=== PATIENT | male | born 1970 | race Hispanic/Latino ===

== ENCOUNTER 2022-06-13 17:31 | Inpatient (IN) | payer SELFPAY ==
[~2022-06-13] VITALS: Ht 167.6 cm; Wt 60.4 kg
[2022-06-13] MEDS ORDERED: LEVOFLOXACIN 500MG/D5W 100ML 100 ML IV STA (17:39)
[2022-06-13 18:06] LABS: BASOPHILS % 0.2 % (0.0-1.0); EOSINOPHILS # (AUTO) 0.1 (0.0-0.4); EOSINOPHILS % 0.6 % (0.0-6.0); HEMATOCRIT 35.3 % (38.2-49.6); HEMOGLOBIN 12.1 g/dL (14.0-18.0); LYMPHOCYTES # (AUTO) 1.5 (1.0-3.2); LYMPHOCYTES % 10.2 % (18.0-39.1); MEAN CORPUSCULAR HEMOGLOBIN 29.8 pg (28-32); MEAN CORPUSCULAR HGB CONC 34.3 g/dL (31-35); MEAN CORPUSCULAR VOLUME 86.9 fL (81-99); MONOCYTES # (AUTO) 0.8 (0.2-0.8); MONOCYTES % 5.4 % (4.4-11.3); NEUTROPHILS # (AUTO) 11.9 (2.1-6.9); NEUTROPHILS % 83.3 % (38.7-80.0); PLATELET COUNT 268 x10e3/uL (140-360); RED BLOOD COUNT 4.06 x10e6/uL (4.3-5.7); RED CELL DISTRIBUTION WIDTH 12.1 % (11.7-14.4)
[2022-06-13 18:08] LABS: ALBUMIN 3.4 g/dL (3.5-5.0); ALBUMIN/GLOBULIN RATIO 0.8 (0.8-2.0); ANION GAP 16.4 mmol/L (8-16); CALCIUM 8.8 mg/dL (8.4-10.2); CREATININE, SERUM 0.76 mg/dL (0.72-1.25); POTASSIUM 3.4 mmol/L (3.5-5.1)
[2022-06-13] MEDS ORDERED: ONDANSETRON HCL INJ 2MG/ML 2ML 2 MG/ML VIAL IV PRN (19:15)
[2022-06-13] MEDS ORDERED: Morphine 4mg INJECTION 4 MG/ML INJ IV PRN (19:15)
[2022-06-13] MEDS ORDERED: POTASSIUM CHLORIDE 20 MEQ TAB CR PO STA (19:50)
[2022-06-13] MEDS ORDERED: ENOXAPARIN SOD INJ 40 MG/0.4 ML SYR SC STA (19:50)
[2022-06-13] MEDS ORDERED: MEROPENEM 1 GM in SODIUM CHLORIDE 0.9% 100 ML IV ONE (20:00)
[2022-06-13] MEDS ORDERED: DEXTROSE 50% SYRINGE 50 ML IV PRN (20:00)
[2022-06-13] MEDS ORDERED: Vancomycin IV 1 GM in SODIUM CHLORIDE 0.9% 250ML 250 ML IV ONE (20:00)
[2022-06-13] MEDS: INSULIN LISPRO 100 UNIT/1 ML 3ML VIAL SQ SCH (20:45)
[2022-06-13] MEDS: ACETAMINOPHEN 325 MG TAB PO PRN (20:45)
[2022-06-13] MEDS ORDERED: INSULIN REGULAR, HUMAN 100 UNIT/1 ML SQ SCH ×2 (21:00)
[2022-06-13] MEDS ORDERED: HYDRALAZINE HCL 20 MG/ML VIAL IV PRN (21:45)
[2022-06-13] MEDS ORDERED: METFORMIN HCL850 MG PO (21:46)
[2022-06-13 21:54] VITALS: BP 147/97
[2022-06-13 22:00] VITALS: BP 142/82
[2022-06-14] VITALS (9 sets, daily range): BP systolic 128–145; BP diastolic 71–86
[2022-06-14] MEDS: ACETAMINOPHEN 325 MG TAB PO PRN (04:34)
[2022-06-14 05:42] LABS: BASOPHILS % 0.3 % (0.0-1.0); EOSINOPHILS # (AUTO) 0.1 (0.0-0.4); EOSINOPHILS % 0.8 % (0.0-6.0); HEMATOCRIT 34.5 % (38.2-49.6); HEMOGLOBIN 11.6 g/dL (14.0-18.0); LYMPHOCYTES % 14.2 % (18.0-39.1); MEAN CORPUSCULAR HEMOGLOBIN 29.4 pg (28-32); MEAN CORPUSCULAR HGB CONC 33.6 g/dL (31-35); MEAN CORPUSCULAR VOLUME 87.3 fL (81-99); MONOCYTES # (AUTO) 0.9 (0.2-0.8); MONOCYTES % 6.3 % (4.4-11.3); NEUTROPHILS # (AUTO) 10.9 (2.1-6.9); PLATELET COUNT 268 x10e3/uL (140-360); RED BLOOD COUNT 3.95 x10e6/uL (4.3-5.7); RED CELL DISTRIBUTION WIDTH 11.9 % (11.7-14.4)
[2022-06-14 06:39] LABS: ALBUMIN 3.1 g/dL (3.5-5.0); ALBUMIN/GLOBULIN RATIO 0.8 (0.8-2.0); ANION GAP 12.8 mmol/L (8-16); CALCIUM 8.8 mg/dL (8.4-10.2); CREATININE, SERUM 0.79 mg/dL (0.72-1.25); POTASSIUM 3.8 mmol/L (3.5-5.1)
[2022-06-14 06:54] LABS: INR 0.99
[2022-06-14 06:55] LABS: PARTIAL THROMBOPLASTIN TIME 34.9 seconds (23.8-35.5)
[2022-06-14] MEDS: INSULIN LISPRO 100 UNIT/1 ML 3ML VIAL SQ SCH ×4 (09:20→21:27)
[2022-06-14] MEDS: Morphine 2mg Syringe 2 MG/ML SYR IV PRN ×3 (09:39→21:22)
[2022-06-14] MEDS: DOXYCYCLINE HYCLATE TABLET 100 MG TAB PO SCH ×2 (11:42→21:22)
[2022-06-14] MEDS: MUPIROCIN 2% OINT 22 GM TUBE TOP SCH (21:00)
[2022-06-15 04:00] VITALS: BP 113/74
[2022-06-15 08:33] VITALS: BP 109/73
[2022-06-15 08:40] VITALS: BP 109/73
[2022-06-15] MEDS: MUPIROCIN 2% OINT 22 GM TUBE TOP SCH (08:41)
[2022-06-15] MEDS: DOXYCYCLINE HYCLATE TABLET 100 MG TAB PO SCH (08:41)
[2022-06-15] MEDS: ACETAMINOPHEN 325 MG TAB PO PRN (08:42)
[2022-06-15] MEDS ORDERED: ONDANSETRON HCL 4 MG ORAL DISINTEGRATING TAB PO PRN (08:45)
[2022-06-15] MEDS: INSULIN LISPRO 100 UNIT/1 ML 3ML VIAL SQ SCH (08:49)
[2022-06-15 09:36] LABS: BASOPHILS % 0.2 % (0.0-1.0); EOSINOPHILS # (AUTO) 0.1 (0.0-0.4); EOSINOPHILS % 1.1 % (0.0-6.0); HEMOGLOBIN 12.1 g/dL (14.0-18.0); LYMPHOCYTES # (AUTO) 1.7 (1.0-3.2); LYMPHOCYTES % 13.8 % (18.0-39.1); MEAN CORPUSCULAR HEMOGLOBIN 29.5 pg (28-32); MEAN CORPUSCULAR HGB CONC 33.6 g/dL (31-35); MEAN CORPUSCULAR VOLUME 87.8 fL (81-99); MONOCYTES # (AUTO) 0.6 (0.2-0.8); MONOCYTES % 4.8 % (4.4-11.3); NEUTROPHILS % 79.8 % (38.7-80.0); PLATELET COUNT 288 x10e3/uL (140-360); RED CELL DISTRIBUTION WIDTH 11.9 % (11.7-14.4)
[2022-06-15] MEDS ORDERED: CIPRO500 MG PO (11:29)
[2022-06-15] MEDS ORDERED: DOXYCYCLINE HY100 MG PO (11:29)
[2022-06-15] MEDS ORDERED: GLIPIZIDE5 MG PO (11:29)
[2022-06-15 12:01] VITALS: BP 127/77
[2022-06-15] MEDS ORDERED: METFORMIN HCL 850 MG TAB PO SCH (17:00)
[2022-06-15] MEDS ORDERED: IBUPROFEN600 MG PO (17:15)
== END 2022-06-15 13:21 | disposition home or self-care (01) | DRG 623 ==
LOC: ER 17:35 → ERHOLD 19:07 → MED/SURG3 21:30
PROVIDERS: ADMIT Internal Medicine; ATTEND Internal Medicine
PROC: 0JBR0ZZ Excision of Left Foot Subcutaneous Tissue and Fascia, Open Approach (ICD-10-PCS; principal; 2022-06-14)
DX: E11.69 Type 2 diabetes mellitus with other specified complication (principal); M86.172 Other acute osteomyelitis, left ankle and foot; Z79.4 Long term (current) use of insulin; E11.621 Type 2 diabetes mellitus with foot ulcer; L97.524 Non-pressure chronic ulcer of other part of left foot with necrosis of bone; E11.40 Type 2 diabetes mellitus with diabetic neuropathy, unspecified; E11.628 Type 2 diabetes mellitus with other skin complications; L03.032 Cellulitis of left toe; Z88.0 Allergy status to penicillin; E11.65 Type 2 diabetes mellitus with hyperglycemia; Z20.822 Contact with and (suspected) exposure to COVID-19
CPT/HCPCS: 0223U; 36415; 80053; 82948; 83036; 83605; 83735; 85025; 85610; 85730; 87040; 99251; 99284; J0696; J1650; J1956; J2185; J2270; J3370; J7050